=== PATIENT | female | born 1950 | race Caucasian/White ===

== ENCOUNTER 2016-07-16 04:01 | Inpatient (IN) ==
[2016-07-11 12:33] LABS: MANUAL DIFF NEEDED? NO; URINE MICRO REVIEW NEEDED? NO; URINE SOURCE VOIDED
[2016-07-11 12:43] LABS: BASO% 0.4 % (0.0-0.8); EOS# 0.33 X1000 (0.0-0.7); EOS% 2.9 % (0.0-10.0); HEMOGLOBIN 12.5 g/dL (12.0-16.0); LYMPH% 30.1 % (20.5-51.1); MCH 31.7 PG (27-31); MCHC 32.1 g/dL (33-37); MONO# 0.63 X1000 (0.11-0.59); MONO% 5.6 % (1.7-9.3); MPV 9.5 FL (7.4-10.4); PLT 314 X1000 (130-400); RBC 3.94 XMIL (4.2-5.4)
[2016-07-11 12:50] LABS: INR 0.97; PROTIME 10.2 Seconds (9.2-11.7); PTT 25.2 Seconds (22.0-36.0)
[2016-07-11 12:56] LABS: BILIRUBIN URINE NEGATIVE (NEGATIVE); BLOOD URINE NEGATIVE (NEGATIVE); COLOR STRAW; GLUCOSE URINE NEGATIVE (NEGATIVE); LEUKOCYTES URINE NEGATIVE (NEGATIVE); NITRITE URINE NEGATIVE (NEGATIVE); PROTEIN URINE NEGATIVE (NEGATIVE); SP GRAVITY URINE 1.003; TURBIDITY URINE CLEAR (CLEAR); UROBILINOGEN URINE NORMAL (NORMAL)
--- NOTE | 2016-07-11 12:56 | EKG Report ---
Test Performed on : 07/11/2016 12:11:08 PM Test Reason : PAT Blood Pressure : / mmHG Vent. Rate : 078 BPM Atrial Rate : 078 BPM P-R Int : 134 ms QRS Dur : 076 ms QT Int : 392 ms P-R-T Axes : 076 081 081 degrees QTc Int : 446 ms Sinus rhythm. with occasional premature ventricular complexes. Possible Left atrial enlargement Borderline ECG No previous ECGs available Confirmed by Dot ADAM, Darius Dominguez ([id number]) on 07/12/2016 6:25:40 PM
[2016-07-11 12:58] LABS: UR EPITHELIAL CELLS <10 /HPF (<10); URINE BACTERIA NEGATIVE /HPF; URINE RBC <10 /HPF (<10); URINE WBC <10 /HPF (<10)
[2016-07-11 14:18] LABS: AGAP 16; BUN 13 mg/dL (8-22); CALCIUM 9.4 mg/dL (8.8-10.2); CHLORIDE 97 mmol/L (98-107); COSMO 279; POTASSIUM 3.5 mmol/L (3.5-5.1); SODIUM 139 mmol/L (136-145); TCO2 26 mmol/L (25-35)
[2016-07-16] MEDS ORDERED: COLACE ONE (05:28)
[2016-07-16] MEDS ORDERED: REGLAN ONE (05:29)
[2016-07-16] MEDS ORDERED: PEPCID ONE (05:29)
[2016-07-16] MEDS ORDERED: LYRICA ONE (05:29)
[2016-07-16] MEDS ORDERED: LR 1,000 ML ONE (05:29)
[2016-07-16] MEDS ORDERED: KEFZOL 1 GM/D5W 1 GM/50 ML IVPB ONE (05:29)
[2016-07-16] MEDS ORDERED: CELEBREX ONE (05:29)
--- NOTE | 2016-07-16 06:58 | HISTORY AND PHYSICAL ---
CHIEF COMPLAINT: Left hip pain. HISTORY OF PRESENT ILLNESS: This is a 65-year-old, white female with a history of gradually increasing pain in her left hip. She knows of no specific injury to her hip. She has been treated conservatively without relief. She was evaluated in the office and found to need a left total hip arthroplasty. The surgical procedure, as well as risks and benefits were explained. The patient at this time is ready to proceed. SERIOUS ILLNESSES: Mitral valve prolapse, hypertension. PAST SURGERIES: Hysterectomy and eye surgery. REGULAR MEDICATIONS: BuSpar 15 twice a day, calcium 600 once a day, vitamin D 2000 per day, Cymbalta 60 one a day, hydrocodone p.r.n. pain, Prinivil 10 one at night, omeprazole 40 one a day, Zanaflex 4 one at night. REVIEW OF SYSTEMS: HEENT: No history of migraines, dizziness, loss of conscious, CVA. Respiratory: She smokes about a pack of cigarettes per day. No history of asthma, emphysema, or shortness of breath. Heart: No history heart abnormalities other than mitral valve prolapse which is asymptomatic. Abdomen: No history of ulcer or digestive disorders. No history of bowel or bladder problems. PHYSICAL EXAMINATION: GENERAL APPEARANCE: This is a 65-year-old female, alert and oriented. Her primary care physician is Dr. Lloyd. HEENT: Pupils equal, round, reactive. NECK: Good range of motion without adenopathy. RESPIRATORY: Respirations are equal, unlabored, clear bilaterally. HEART: Regular rate and rhythm. ABDOMEN: Soft, nontender. Bowel sounds present. EXTREMITIES: She complains of pain in her left hip area. Sometimes it radiates down her left leg. She states she has difficulty walking. She has good sensation and pulses distally. IMPRESSION: Degenerative disease of the left hip. PLAN: Admit at this time for a left total hip arthroplasty. Dictated by Marcell Dean RN for Dario Olivares MD This chart was documented by the indicated scribe, Marcell Dean RN and accurately reflects the services I performed and decisions made by me, Dario Olivares MD, as attested by the provider's signature. cc: Dario Olivares MD
[2016-07-16] MEDS ORDERED: MARCAINE 0.25% PF/EPI 1:200,000 ONE (07:17)
[2016-07-16] MEDS ORDERED: DURAMORPH ONE (07:17)
[2016-07-16] MEDS ORDERED: TORADOL ONE (07:17)
[2016-07-16] MEDS ORDERED: CYKLOKAPRON 1,000 MG/NS 1,000 MG/100 ML IVPB ONE (07:17)
[2016-07-16] MEDS ORDERED: SODIUM CHLORIDE 0.9% ONE (07:17)
[2016-07-16] MEDS ORDERED: NEOSPORIN G.U. IRRIGANT ONE (07:18)
[2016-07-16] MEDS ORDERED: EXPAREL 1.3% ONE (07:18)
[2016-07-16 08:38] LABS: URINE MICRO REVIEW NEEDED? NO; URINE SOURCE CATH
[2016-07-16 08:41] LABS: BILIRUBIN URINE NEGATIVE (NEGATIVE); BLOOD URINE NEGATIVE (NEGATIVE); COLOR YELLOW; GLUCOSE URINE NEGATIVE (NEGATIVE); LEUKOCYTES URINE NEGATIVE (NEGATIVE); NITRITE URINE NEGATIVE (NEGATIVE); PH URINE 5.5; PROTEIN URINE NEGATIVE (NEGATIVE); SP GRAVITY URINE 1.009; TURBIDITY URINE CLEAR (CLEAR); UR EPITHELIAL CELLS <10 /HPF (<10); URINE BACTERIA NEGATIVE /HPF; URINE RBC <10 /HPF (<10); URINE WBC <10 /HPF (<10); UROBILINOGEN URINE NORMAL (NORMAL)
[2016-07-16] MEDS ORDERED: NS 1,000 ML ONE (09:26)
[2016-07-16] MEDS ORDERED: VERSED ONE (09:36)
[2016-07-16] MEDS ORDERED: FENTANYL ONE (09:36)
[2016-07-16] MEDS ORDERED: DIPRIVAN 1% ONE (09:36)
[2016-07-16] MEDS ORDERED: ZOFRAN IV PRN (09:45)
[2016-07-16] MEDS ORDERED: MORPHINE IV PRN (09:45)
[2016-07-16] MEDS ORDERED: AMBIEN PO PRN (09:45)
[2016-07-16] MEDS ORDERED: MILK OF MAGNESIA PO PRN (09:45)
[2016-07-16] MEDS ORDERED: OFIRMEV 1000 MG/ISOTONIC SOLN 1,000 MG/100 ML BOTTLE ONE (09:57)
[2016-07-16] MEDS ORDERED: ZOFRAN ONE (09:57)
[2016-07-16] MEDS ORDERED: DECADRON ONE (09:57)
[2016-07-16] MEDS ORDERED: LR 2,000 ML ONE (09:57)
[2016-07-16] MEDS: NS 1,000 ML IV SCH ×2 (10:40→23:04)
--- NOTE | 2016-07-16 11:16 | OPERATIVE NOTE ---
PROCEDURE DATE: 07/16/2016 PREOPERATIVE DIAGNOSIS: Left hip degenerative joint disease. POSTOPERATIVE DIAGNOSIS: Left hip degenerative joint disease. PROCEDURE: Left total hip arthroplasty using a [facility] size 10 femoral stem high offset, with a +0, 32 mm head, and a 50 mm hemispherical shell with a 32 mm inside diameter polyethylene liner. ANESTHESIA: Spinal. SURGEON: Dario Olivares MD [employer] TESTING GROUP LEADER: 1. Vanessa Burns 2. SHAHEEN Lamar 3. Marcell Dean RN COMPLICATIONS: None. BLOOD LOSS: Minimal. DRAINS: Hemovac x1. DESCRIPTION OF PROCEDURE: The patient was brought to the operative suite and placed in supine position. After successful administration of general anesthesia well the patient was placed on the OSI table in the usual position for left hip. The left hip was then prepped and draped in usual sterile fashion. A longitudinal incision was made beginning 2 cm distal and 2 cm lateral to the anterior superior iliac spine, extending distally and slightly laterally 8 cm. The incision was then dissected sharply through the skin down to the tensor fascia. The tensor fascia was incised and dissected bluntly down to the deep tensor fascia. The deep tensor fascia was incised. The circumflex vessels were electrocauterized exposing the anterior capsule. A T-capsulotomy was performed, exposing the anterior femoral neck. A femoral neck cut was made with Not applicable. oscillating saw. Femoral head was removed with a power corkscrew. The labrum was resected. Acetabulum was serially reamed to a 50 to accept a 50 cup, the 50 cup was then driven into place in the proper amount inclination and anteversion. Once this was secure, the liner was locked onto the cup then attention was directed to the femur. The femur was externally rotated, extended, adducted, and elevated out of the wound with the hook on the OSI bed. The lateral neck was rongeured. The canal was serially broached to a size 10. A size 10 high offset, +0 neck length was trialed and found to be stable and good leg length. The trial was removed, definitive stem was seated on the femur, and then the ceramic head was locked onto the Marvin taper and the hip was copiously irrigated and dried and the hip was again reduced. It was again found to be in excellent position and found to be stable. The hip was copiously infiltrated with Exparel, including the posterior capsule, anterior capsule, anterior musculature, and subcutaneous tissue. The anterior capsule was repaired with #2 FiberWire. The drain was placed deep to the tensor fascia and buried around the stem of the prosthesis. The tensor fascia was closed with running 0 Vicryl suture. The skin edge approximated with 2-0 Vicryl interrupted. The skin was closed with a running Monocryl subcuticular and then Dermabond and a Silverlon dressing. The patient tolerated the procedure well without complication. At the end of the procedure, all counts correct. The patient was transferred to the recovery room in stable condition. cc: Dario Olivares MD
[2016-07-16] MEDS: NICODERM PATCH TD SCH (11:23)
[2016-07-16] MEDS ORDERED: CYKLOKAPRON 1,000 MG in NS 100 ML IV ONE (14:00)
[2016-07-16] MEDS: OXY IR PO PRN ×3 (14:05→18:48)
[2016-07-16] MEDS: KEFZOL 1 GM/D5W 1 GM/50 ML IVPB IV SCH ×2 (14:42→23:05)
[2016-07-16] MEDS: TYLENOL PO SCH ×2 (14:43→23:01)
[2016-07-16] MEDS: ULTRAM PO SCH ×2 (16:06→23:00)
[2016-07-16] MEDS ORDERED: PRINIVIL PO SCH (21:00)
[2016-07-16] MEDS: PERIDEX MT SCH (23:00)
[2016-07-16] MEDS: LYRICA PO SCH (23:00)
[2016-07-16] MEDS: BUSPAR PO SCH (23:00)
[2016-07-16] MEDS: ZANAFLEX PO SCH (23:00)
[2016-07-16] MEDS: COLACE PO SCH (23:00)
[2016-07-16] MEDS: CELEBREX PO SCH (23:00)
--- NOTE | 2016-07-17 04:56 | CONSULTATION ---
DATE OF CONSULTATION: 07/16/2016 REASON FOR CONSULTATION: Medical management. HISTORY OF PRESENT ILLNESS: Ms. Wallace, a 65-year-old white female patient, underwent a left total hip arthroplasty for severe degenerative disk disease. The patient tolerated the procedure well. I was consulted for medical management. The patient denied any chest pain. She does have occasional palpitations and skipped beats. No unusual cough, expectoration, or hemoptysis. Denied abdominal pain, nausea, vomiting. No diarrhea, blood, or mucus in the stool. The patient does have chronic low back pain. No heat or cold intolerance, unquantified weight loss. The patient does have a Perez catheter. Denied polyuria and polydipsia. No focal numbness, tingling, weakness. Patient denied being depressed. No further history available at this time. ALLERGIES: No known drug allergies. HOME MEDICATIONS: Includes BuSpar. The patient is on vitamin D, Colace, Cymbalta, Pepcid, Prinivil. The patient was on hydrocodone, Prilosec, and Zanaflex. PAST MEDICAL HISTORY: Significant for hypertension, osteoarthritis, situational depression, osteoporosis, gastritis, vitamin D deficiency, benign breast tumor, mitral valve prolapse, hysterectomy. REVIEW OF SYSTEMS: As per HPI. FAMILY HISTORY: Noncontributory. PHYSICAL EXAMINATION: General: Elderly white female patient in no acute distress. Vital Signs: Blood pressure 146/65, pulse 77, respirations 14, temperature 97.8 degrees. Skin: Normal turgor. No rash or petechiae. HEENT: Head atraumatic, normocephalic. Peever conjunctivae. Anicteric sclerae. Extraocular muscle movement normal. Fundus cannot be penetrated. Good oral hygiene. No tonsillopharyngeal congestion or exudate. Ears and nose benign. Neck: Supple. No JVD, thyromegaly, or lymphadenopathy. Chest: Bilateral good air entry present. No rales. Cardiovascular: S1 and S2 heard. A 2/6 systolic murmur at the apex. Abdomen: Soft, globular. Bowel sounds present. No organomegaly or mass. Extremities: No cyanosis, clubbing. No acute DVT. CHROME CLEANER: Alert, awake, able to move all 4 limbs. LABORATORY STUDIES: Preoperative blood work done on 07/11/2016. Hemoglobin was 12.5, hematocrit 39, platelet count 314,000. PT/INR 0.97, PTT was 25.2. Electrolytes were fairly benign. Urinalysis was negative. Her preoperative EKG revealed sinus rhythm, occasional PVC, left atrial enlargement, No acute ST-T wave changes. ASSESSMENT: Patient's medical problems include hypertension, history suggestive of chronic cough and Chronic obstructive pulmonary disease, palpitation, gastritis and reflux disease, osteoarthritis, vitamin D deficiency, situational depression. PLAN: Clinically, patient is doing better. We will check appropriate labs. Considering her history of palpitation, she will be benefited from telemetry monitoring. Will do CBC, check her magnesium. Fall precaution, close observation. Encourage incentive spirometry. Overall plan discussed at length with the patient. She is in agreement. cc: MD Dario Vo MD
[2016-07-17] MEDS: ULTRAM PO SCH ×3 (05:29→17:53)
[2016-07-17] MEDS: PRILOSEC PO SCH ×2 (05:29→07:44)
[2016-07-17] MEDS: XARELTO PO SCH (05:30)
[2016-07-17] MEDS: TYLENOL PO SCH ×3 (05:30→17:54)
[2016-07-17 06:10] LABS: MANUAL DIFF NEEDED? NO
[2016-07-17 06:34] LABS: AGAP 13; ALBUMIN 3.1 g/dL (3.5-5.0); ALKALINE PHOSPHATASE 59 U/L (32-104); BUN 13 mg/dL (8-22); CHLORIDE 98 mmol/L (98-107); COSMO 267; GOT 14 U/L (10-30); GPT 6 U/L (10-36); MAGNESIUM 1.7 mg/dL (1.5-2.7); POTASSIUM 4.5 mmol/L (3.5-5.1); SODIUM 133 mmol/L (136-145); TCO2 22 mmol/L (25-35); TOTAL BILIRUBIN 0.25 mg/dL (0.20-1.00); TOTAL PROTEIN 5.4 g/dL (6.3-8.3)
[2016-07-17 06:36] LABS: BASO% 0.1 % (0.0-0.8); HEMATOCRIT 26.1 % (37.0-47.0); HEMOGLOBIN 8.5 g/dL (12.0-16.0); LYMPH# 1.55 X1000 (1.2-3.4); LYMPH% 14.8 % (20.5-51.1); MCH 31.7 PG (27-31); MCHC 32.6 g/dL (33-37); MCV 97.4 FL (81-99); MONO# 0.63 X1000 (0.11-0.59); NEUT% 79.1 % (42.2-75.2); PLT 256 X1000 (130-400); RBC 2.68 XMIL (4.2-5.4)
--- NOTE | 2016-07-17 07:25 | PROGRESS NOTE ---
DATE: 07/17/2016 SUBJECTIVE: Ms. Cunningham is doing fair. She is complaining of pain in the left hip, more of a soreness. No chest pain. Mild cough. No expectoration. The patient does have chronic cough and is a heavy smoker. I am going to start her on Symbicort. OBJECTIVE: Her vital signs noted. Neck: Is supple. No JVD. Lungs: Bilateral good air entry present. Few basal crepitations. CVS: S1 and S2 heard. Abdomen: Soft. No distention. Bowel sounds present. AIRPLANE CLEANER: Alert, awake. Able to move all 4 limbs. CONSIDERATION: Labs- a.m. labs are pending. Electrolytes fairly benign. Sodium was 133, potassium 4.5. CBC results are pending. The patient does have hypertension, chronic cough, and osteoarthritis. I am going to start her on Symbicort. Continue rest of the treatment. I encouraged patient to go for inpatient rehab for better success of her surgery. The patient is going to discuss with her daughter and then make further final decision. Will follow CBC results. cc: MD Dario Vo MD
[2016-07-17] MEDS: SYMBICORT 160/4.5 MICROGM INHALER INH SCH ×2 (07:54→21:29)
--- NOTE | 2016-07-17 08:22 | PROGRESS NOTE ---
DATE: 07/17/2016 SUBJECTIVE: Ms. Wallace is a 65-year-old female who is postoperative day 1 from a left total hip arthroplasty. She has no new complaints. OBJECTIVE: Vital Signs: Stable. She is afebrile. General: She is well developed, well nourished female. She is alert, oriented and cooperative with the examination. Extremities: Her dressing is clean, dry, and intact without cyanosis. Neurologic: Her leg is neurovascularly intact. Her calf is soft. Intact sensation to light touch. LABORATORY: Her hematocrit is 26.1, hemoglobin is 8.5. She has had 60 mL of drainage from the Hemovac and she walked 200 feet with physical therapy yesterday. ASSESSMENT: Stable left total hip arthroplasty. PLAN: We plan to continue working with her physical therapy and we hope to discharge her home tomorrow. Dictated by HANK Chun for Dario Olivares MD cc: HANK Chun MD MTDD
[2016-07-17] MEDS ORDERED: DECADRON IV ONE (09:00)
[2016-07-17] MEDS: PERIDEX MT SCH ×2 (09:26→21:29)
[2016-07-17] MEDS: CELEBREX PO SCH ×2 (09:26→21:28)
[2016-07-17] MEDS: CALTRATE 600 PO SCH (09:26)
[2016-07-17] MEDS: VITAMIN D PO SCH (09:26)
[2016-07-17] MEDS: PRINIVIL PO SCH (09:26)
[2016-07-17] MEDS: NICODERM PATCH TD SCH (09:26)
[2016-07-17] MEDS: LYRICA PO SCH ×2 (09:27→21:28)
[2016-07-17] MEDS: CYMBALTA PO SCH (09:27)
[2016-07-17] MEDS: COLACE PO SCH ×2 (09:27→21:28)
[2016-07-17] MEDS: PEPCID PO SCH (09:27)
[2016-07-17] MEDS: BUSPAR PO SCH ×2 (09:27→21:28)
[2016-07-17] MEDS: OXY IR PO PRN ×2 (09:34→21:27)
[2016-07-17] MEDS: ZANAFLEX PO SCH (21:29)
[2016-07-18] MEDS: ULTRAM PO SCH ×3 (00:14→12:19)
[2016-07-18] MEDS: TYLENOL PO SCH ×3 (00:15→12:20)
[2016-07-18] MEDS: OXY IR PO PRN ×3 (03:51→13:29)
[2016-07-18 05:43] LABS: HEMATOCRIT 25.2 % (37.0-47.0); HEMOGLOBIN 8.1 g/dL (12.0-16.0)
[2016-07-18] MEDS: XARELTO PO SCH (06:30)
[2016-07-18] MEDS: PRILOSEC PO SCH (06:30)
--- NOTE | 2016-07-18 06:54 | PROGRESS NOTE ---
DATE: 07/18/2016 SUBJECTIVE: Ms. Wallace is doing better. She was able to ambulate in the hallway yesterday complaining of pain in the left hip area. No high-grade fever or chills. No chest pain or palpitations. No unusual shortness of breath. Her O2 saturation on room air is satisfactory. Oral intake was good. OBJECTIVE: Vital Signs: Her vital signs were noted. Neck: Supple. No JVD. Lungs: Bilateral good air entry present. Cardiovascular: S1 and S2 heard. Abdomen: Soft. No distention. Bowel sounds present. Central Nervous System: Alert, awake, able to move all 4 limbs. No acute DVT. LABORATORY DATA: The lab data done yesterday reviewed. Hemoglobin was 8.1, hematocrit 25.2. The patient does have blood-loss anemia, which the patient is tolerating it fairly well. CONSIDERATION: 1. Gastritis and reflux disease. 2. Osteoarthritis. 3. Hypertension. 4. Situational depression. PLAN: I am going to add Icar-C. We will let home health do blood work on Saturday. Continue the rest of the medications. Fall precautions. The overall plan was discussed with the patient, and she is in agreement. cc: MD Dario Vo MD
[2016-07-18] MEDS: SYMBICORT 160/4.5 MICROGM INHALER INH SCH (08:09)
[2016-07-18] MEDS ORDERED: ICAR-C PO SCH (09:00)
[2016-07-18] MEDS: PRINIVIL PO SCH (09:59)
[2016-07-18] MEDS: NICODERM PATCH TD SCH (09:59)
[2016-07-18] MEDS: LYRICA PO SCH (09:59)
[2016-07-18] MEDS: CALTRATE 600 PO SCH (10:00)
[2016-07-18] MEDS: COLACE PO SCH (10:00)
[2016-07-18] MEDS: BUSPAR PO SCH (10:00)
[2016-07-18] MEDS: PERIDEX MT SCH (10:00)
[2016-07-18] MEDS: CYMBALTA PO SCH (10:00)
[2016-07-18] MEDS: CELEBREX PO SCH (10:00)
[2016-07-18] MEDS: VITAMIN D PO SCH (10:00)
[2016-07-18] MEDS: PEPCID PO SCH (10:01)
[2016-07-18 11:23] VITALS: BP 155/59
--- NOTE | 2016-07-19 04:21 | DISCHARGE SUMMARY ---
ADMISSION DATE: 07/16/2016 DISCHARGE DATE: 07/18/2016 DISCHARGE DIAGNOSIS: Left hip degenerative joint disease, status post left total hip arthroplasty. DISCHARGE MEDICATIONS: See discharge medication list. DISPOSITION: Patient discharged home with outpatient physical therapy. Instructed to return for any signs or symptoms of infection or deep venous thrombosis. Instructed to return to see Dr. Olivares next . HOSPITAL COURSE: On the day of admission, the patient underwent a left anterior total hip arthroplasty. Postoperative course unremarkable. At discharge, she is afebrile, tolerating a regular diet, ambulating well with physical therapy. Her wound is clean, dry, intact, without sign of infection. She is discharged home in stable condition, with instructions to follow up as described above. cc: Dario Olivares MD
== END 2016-07-18 14:11 | disposition home or self-care (01) ==
LOC: SURHOLD 04:01 → 4N 08:23
PROVIDERS: ADMIT Orthopaedic Surgery; ATTEND Orthopaedic Surgery

== ENCOUNTER 2018-04-16 11:07 | Inpatient (IN) ==
[2018-04-16] MEDS ORDERED: ZOFRAN IV ONE (11:13)
[2018-04-16] MEDS ORDERED: DILAUDID IV ONE ×3 (11:13→15:22)
[2018-04-16] MEDS ORDERED: ZOFRAN ONE ×2 (11:15→18:20)
[2018-04-16] MEDS ORDERED: DILAUDID ONE (11:15)
[2018-04-16 12:08] LABS: URINE SOURCE CATH
[2018-04-16 12:15] LABS: BASO# 0.03 X1000 (0.0-0.2); BASO% 0.2 % (0.0-0.8); EOS# 0.21 X1000 (0.0-0.7); EOS% 1.6 % (0.0-10.0); HEMATOCRIT 31.5 % (37.0-47.0); HEMOGLOBIN 9.9 g/dL (12.0-16.0); IMM GRAN# 0.02 X1000 (0.0-0.04); IMM GRAN% 0.1 % (0.0-0.5); LYMPH% 15.7 % (20.5-51.1); MCH 30.1 PG (27-31); MCHC 31.4 g/dL (33-37); MCV 95.7 FL (81-99); MONO# 0.92 X1000 (0.11-0.59); MONO% 6.9 % (1.7-9.3); MPV 9.8 FL (7.4-10.4); NEUT# 10.08 X1000 (1.4-6.5); NEUT% 75.5 % (42.2-75.2); PLT 382 X1000 (130-400); RBC 3.29 XMIL (4.2-5.4); RDW 13.1 % (11.5-14.5); WBC 13.36 X1000 (4.8-10.8)
[2018-04-16 12:19] LABS: BILIRUBIN URINE NEGATIVE (NEGATIVE); BLOOD URINE NEGATIVE (NEGATIVE); COLOR YELLOW; GLUCOSE URINE NEGATIVE (NEGATIVE); KETONE URINE NEGATIVE (NEGATIVE); LEUKOCYTES URINE NEGATIVE (NEGATIVE); NITRITE URINE NEGATIVE (NEGATIVE); PROTEIN URINE NEGATIVE (NEGATIVE); SP GRAVITY URINE 1.003; TURBIDITY URINE CLEAR (CLEAR); UR EPITHELIAL CELLS <10 /HPF (<10); URINE BACTERIA NEGATIVE /HPF; URINE RBC <10 /HPF (<10); URINE WBC <10 /HPF (<10); UROBILINOGEN URINE NORMAL (NORMAL)
[2018-04-16 12:26] LABS: INR 0.89; PROTIME 12.7 Seconds (11.0-16.0)
[2018-04-16 12:27] LABS: PTT 24.6 Seconds (22.3-41.8)
[2018-04-16 12:29] LABS: ALB/GLOB RATIO 1.5; CALCIUM 8.6 mg/dL (8.8-10.2); POTASSIUM 3.5 mmol/L (3.5-5.1); TOTAL BILIRUBIN 0.15 mg/dL (0.20-1.00); TOTAL PROTEIN 6.6 g/dL (6.3-8.3)
--- NOTE | 2018-04-16 12:38 | Diag Imaging Result Doc PS360 ---
PELVIS - 04/16/2018 INDICATION: fall TECHNIQUE: COMPARISON: None FINDINGS: There is a left hip prosthesis in good position. There are stable old deformities of the pubic rami on the right. No visible acute fracture to the pelvis. Positioning is poor. IMPRESSION: No visible acute fracture. Electronically signed by Tej Sen 04/16/2018 12:35 PM
--- NOTE | 2018-04-16 12:38 | Diag Imaging Result Doc PS360 ---
FEMUR MIN 2 VIEWS RIGHT - 04/16/2018 INDICATION: DEFORMITY R FEMUR TECHNIQUE: COMPARISON: None FINDINGS: There is a badly displaced overlapping midshaft right femur fracture. This is angulated by about 30 degrees. IMPRESSION: Right femur fracture. Electronically signed by Tej Sen 04/16/2018 12:36 PM
--- NOTE | 2018-04-16 12:42 | Diag Imaging Result Doc PS360 ---
EXAM: CHEST-PORTABLE INDICATION: MVP,HEART MURMUR,PRE-OP TECHNIQUE: One view COMPARISON: 03/11/2018 FINDINGS: There is evidence of prior granulomatous disease, stable. The lungs are grossly clear. There is no discrete pleural fluid collection or pneumothorax. The cardiomediastinal silhouette and central vasculature are grossly unremarkable. IMPRESSION: No evidence of acute pathology by plain radiograph. Electronically signed by Agus Stahl 04/16/2018 12:39 PM
[2018-04-16] MEDS ORDERED: NS 1,000 ML IV ONE ×2 (12:46→14:56)
--- NOTE | 2018-04-16 14:33 | PROVIDER DOCUMENTATION ---
This chart was entered by Lovely Ruiz Scribe, acting as scribe for Tony Branch MD. HPI-Musculoskeletal Pain/Inj - GENERAL Stated Complaint: fall Time Seen by Provider: 04/16/18 11:12 Source: EMS - HX OF PRESENT ILLNESS-MUSKULOSKELTAL Nature of Presenting Problem: Patient is a 67 year old female who presents to the ED via EMS with right upper leg pain. EMS states patient fell prior to arrival. EMS states patient broke her left femur last years around [place] time. Patient does not report head injury. Patient denies taking blood thinners. Quality of Pain: reports: aching Severity in ED: moderate Onset/Duration: just prior to arrival Timing: still present Modifying Factors: improves with: nothing Any recent injury?: Yes (fall) Locality of Occurance: Home Similar Symptoms Previously?: No Recently seen or treated by another doctor?: No - FALL INJURY Location of Pain/Injury: reports: lower extremity (right upper leg) Pain Radiation: reports: no radiation Reason for Fall: reports: unknown Symptoms prior to fall:: reports: none Loss of Consciousness: no loss of consciousness Injury Associated Symptoms: reports: unable to bear weight, trouble walking - LOWER EXTREMITY PAIN/INJURY Lower Extremities Pain: leg: right (upper) Context / Method of Injury: reports: fell Associated Symptoms: reports: weakness in legs/feet (right) Review of Systems - Adult - REVIEW OF SYSTEMS - ADULT Constitutional: reports: no symptoms reported Eyes: reports: no symptoms reported Ears, Nose, Mouth & Throat: reports: no symptoms reported Cardiovascular: reports: no symptoms reported Respiratory: reports: no symptoms reported Gastrointestinal: reports: no symptoms reported Genitourinary: reports: no symptoms reported Musculoskeletal: reports: other (right upper leg pain). denies: back pain, neck pain Integumentary: reports: no symptoms reported Neurological: reports: no symptoms reported Psychiatric: reports: no symptoms reported Endocrine: reports: no symptoms reported Hematologic/Lymphatic: reports: no symptoms reported Allergic/Immunologic: reports: no symptoms reported All Other Systems: Reviewed and Negative Past History - Adult - PAST MEDICAL HISTORY-ADULT Review of Records: reports: Nursing Assessment Review, Medications Reviewed, Social history reviewed & non-contributory. Major Childhood Illnesses: reports: denies history Cardiovascular: reports: hyperlipidemia Respiratory: reports: COPD Gastrointestinal: reports: GERD Obstetrical/Gynecological: reports: denies history Genitourinary: reports: denies history Musculoskeletal: reports: intervertebral disc disease, osteoporosis Neurological: reports: denies history Psychiatric: reports: denies history Endocrine/Immune: reports: denies history Other Conditions: reports: denies history - PRIOR SURGERIES/PROCEDURES Surgical/Procedure History: reports: reviewed, not pertinent, appendectomy, hysterectomy, tonsillectomy, joint replacement - IMMUNIZATION STATUS Childhood Immunizations: See Nurse Assessment Flu Vaccine: See Nurse Assessment - FAMILY HISTORY Family History: reviewed, not pertinent - SOCIAL HISTORY Smoking: cigarettes, less than 1 pack/day Provider spent 3-5 mins advising pt. on dangers of tobacco.: Discussed manners to quit use, and f/u contacts for add'l counseling. Substance Use: denies Physical Exam-Injury Related - Physical Exam-Injury Related Initial Vital Signs Reviewed: Yes General Appearance: alert, moderate distress Neck: non-tender, normal inspection Respiratory: chest non-tender, lungs clear, normal breath sounds Cardiovascular: normal peripheral pulses, regular rate, rhythm, systolic murmur (3/6 at PMI) Abdominal Exam: normal bowel sounds, non tender, soft Extremity: deformity (right thigh), tenderness (right thigh) Integumentary: normal color, warm/dry Neurologic: grossly normal Psych/Mental Status: normal mood/affect, oriented x 3 Progress - PLAN OF CARE/RESULTS Progress/Plan/Lab Results: Vital Signs - 8 hr 04/16/18 11:36 04/16/18 11:40 04/16/18 11:50 Pulse Rate 105 H 101 H 105 H Respiratory Rate 16 16 17 Blood Pressure 164/75 O2 Sat by Pulse Oximetry 98 99 93 L 04/16/18 12:06 04/16/18 12:29 04/16/18 12:30 Pulse Rate 106 H 104 H Respiratory Rate 17 19 Blood Pressure 164/75 O2 Sat by Pulse Oximetry 100 98 97 04/16/18 12:40 04/16/18 12:43 04/16/18 12:45 Pulse Rate 104 H 99 H 102 H Respiratory Rate 12 17 12 Blood Pressure 136/68 136/68 O2 Sat by Pulse Oximetry 99 97 97 04/16/18 12:50 04/16/18 13:00 04/16/18 13:01 Pulse Rate 103 H 108 H 110 H Respiratory Rate 19 15 25 H Blood Pressure 134/70 O2 Sat by Pulse Oximetry 100 98 96 04/16/18 13:10 04/16/18 13:17 04/16/18 13:20 Pulse Rate 108 H 107 H 110 H Respiratory Rate 17 20 19 Blood Pressure 174/85 O2 Sat by Pulse Oximetry 96 94 L 94 L 04/16/18 13:30 04/16/18 13:31 04/16/18 13:34 Pulse Rate 109 H 110 H 107 H Respiratory Rate 21 24 19 Blood Pressure 172/81 162/84 O2 Sat by Pulse Oximetry 98 99 97 04/16/18 13:40 04/16/18 13:46 04/16/18 13:50 Pulse Rate 115 H 116 H 108 H Respiratory Rate 15 22 22 Blood Pressure 176/87 O2 Sat by Pulse Oximetry 97 94 L 93 L 04/16/18 14:00 04/16/18 14:01 Pulse Rate 110 H 109 H Respiratory Rate 21 17 Blood Pressure 162/80 O2 Sat by Pulse Oximetry 94 L 95 Laboratory Results - last 24 hr 04/16/18 04/16/18 04/16/18 11:46 11:46 11:46 WBC RBC Hgb Hct MCV MCH MCHC RDW Std Deviation Plt Count MPV Immature Gran % (Auto) Neut % (Auto) Lymph % (Auto) [place] % (Auto) Eos % (Auto) Baso % (Auto) Immature Gran # (Auto) Neut # (Auto) Lymph # (Auto) [place] # (Auto) Eos # (Auto) Baso # (Auto) PT INR PTT (Actin FS) Sodium 137 Potassium 3.5 Chloride 100 Carbon Dioxide 22 L Anion Gap 15 BUN 25 H Creatinine 1.0 H Estimated GFR/1.73 m2 55 BUN/Creatinine Ratio 25 Glucose 111 H Calculated Osmolality 279 Calcium 8.6 L Magnesium 1.7 Total Bilirubin 0.15 L AST 11 ALT 5 L Alkaline Phosphatase 100 Troponin T < 0.010 Total Protein 6.6 Albumin 4.0 Globulin 2.6 Albumin/Globulin Ratio 1.5 Urine Source Urine Color Urine Turbidity Urine pH Ur Specific [place] Urine Protein Ur Glucose (Stick) Ur Ketones (Stick) Urine Blood Urine Nitrite Urine Bilirubin Urobilinogen Dipstick Urine Leukocytes Urine WBC (Auto) Urine RBC (Auto) U Epithel Cells (Auto) Urine Bacteria (Auto) 04/16/18 04/16/18 04/16/18 11:46 12:02 12:02 WBC 13.36 H RBC 3.29 L Hgb 9.9 L Hct 31.5 L MCV 95.7 MCH 30.1 MCHC 31.4 L RDW Std Deviation 13.1 Plt Count 382 MPV 9.8 Immature Gran % (Auto) 0.1 Neut % (Auto) 75.5 H Lymph % (Auto) 15.7 L [place] % (Auto) 6.9 Eos % (Auto) 1.6 Baso % (Auto) 0.2 Immature Gran # (Auto) 0.02 Neut # (Auto) 10.08 H Lymph # (Auto) 2.10 [place] # (Auto) 0.92 H Eos # (Auto) 0.21 Baso # (Auto) 0.03 PT 12.7 INR 0.89 PTT (Actin FS) 24.6 Sodium Potassium Chloride Carbon Dioxide Anion Gap BUN Creatinine Estimated GFR/1.73 m2 BUN/Creatinine Ratio Glucose Calculated Osmolality Calcium Magnesium Total Bilirubin AST ALT Alkaline Phosphatase Troponin T Total Protein Albumin Globulin Albumin/Globulin Ratio Urine Source CATH Urine Color YELLOW Urine Turbidity CLEAR Urine pH 5.0 Ur Specific [place] 1.003 Urine Protein NEGATIVE Ur Glucose (Stick) NEGATIVE Ur Ketones (Stick) NEGATIVE Urine Blood NEGATIVE Urine Nitrite NEGATIVE Urine Bilirubin NEGATIVE Urobilinogen Dipstick NORMAL Urine Leukocytes NEGATIVE Urine WBC (Auto) <10 Urine RBC (Auto) <10 U Epithel Cells (Auto) <10 Urine Bacteria (Auto) NEGATIVE Orders Category Date Time Status Perez Cath Insertion ORDERED Care 04/16/18 11:43 Active Saline Loc NOW Care 04/16/18 11:41 Active CHEST-PORTABLE [RAD] Stat Exams 04/16/18 11:40 Completed FEMUR MIN 2 VIEWS RIGHT [RAD] Stat Exams 04/16/18 11:37 Completed PELVIS [RAD] Stat Exams 04/16/18 11:42 Completed CBC WITH ELECTRONIC DIFF [HEME] Stat Lab 04/16/18 12:02 Completed COMPREHENSIVE METABOLIC PANEL [CHEM] Stat Lab 04/16/18 11:46 Completed MAGNESIUM [CHEM] Stat Lab 04/16/18 11:46 Completed PROTIME WITH INR [COAG] Stat Lab 04/16/18 12:02 Completed PTT [COAG] Stat Lab 04/16/18 12:02 Completed TROPONIN T Stat Lab 04/16/18 11:46 Completed URINALYSIS W/POSS RFLX CULT [URINALYSIS] Stat Lab 04/16/18 11:46 Completed 0.9% Sodium Chloride Inj [Ns] 1,000 ml Med 04/16/18 12:46 Discontinued IV 999 mls/hr Hydromorphone [Dilaudid] Med 04/16/18 11:15 Discontinued 1 mg .ROUTE .STK-MED ONE Hydromorphone [Dilaudid] Med 04/16/18 11:13 Discontinued 1 mg IV NOW ONE Hydromorphone [Dilaudid] Med 04/16/18 12:44 Discontinued 1 mg IV NOW ONE Ondansetron [Zofran] Med 04/16/18 11:15 Discontinued 4 mg .ROUTE .STK-MED ONE Ondansetron [Zofran] Med 04/16/18 11:13 Discontinued 4 mg IV NOW ONE EKG [EKG] Stat Ther 04/16/18 11:41 Ordered Result Diagrams: 04/16/18 12:02 04/16/18 11:46 - XRAY 1 XRAY: Right XRAY Study: Femur Impression: See EMR Report ( FEMUR MIN 2 VIEWS RIGHT - 04/16/2018 INDICATION: DEFORMITY R FEMUR TECHNIQUE: COMPARISON: None FINDINGS: There is a badly displaced overlapping midshaft right femur fracture. This is angulated by about 30 degrees. IMPRESSION: Right femur fracture. Electronically signed by Tej Sen 04/16/2018 12:36 PM 04/16/18 1236 Interpreting Physician: Tej Sen MD Dictated Date/Time: 04/16/18 1235 cc: Tony Branch MD; Brad Lloyd MD) 2 XRAY Study: Pelvis Impression: See EMR Report (PELVIS - 04/16/2018 INDICATION: fall TECHNIQUE: COMPARISON: None FINDINGS: There is a left hip prosthesis in good position. There are stable old deformities of the pubic rami on the right. No visible acute fracture to the pelvis. Positioning is poor. IMPRESSION: No visible acute fracture. Electronically signed by Tej Sen 04/16/2018 12:35 PM 04/16/18 1235 Interpreting Physician: Tej Sen MD Dictated Date/Time : 04/16/18 1232 cc: Tony Branch MD; Brad Lloyd MD) 3 XRAY Study: Chest Impression: See EMR Report (EXAM: CHEST-PORTABLE INDICATION: MVP,HEART MURMUR, PRE-OP TECHNIQUE: One view COMPARISON: 03/11/2018 FINDINGS: There is evidence of prior granulomatous disease, stable. The lungs are grossly clear. There is no discrete pleural fluid collection or pneumothorax. The cardiomediastinal silhouette and central vasculature are grossly unremarkable. IMPRESSION: No evidence of acute pathology by plain radiograph. Electronically signed by Agus Stahl 04/16/2018 12:39 PM 04/16/18 1239 Interpreting Physician: Agus Stahl MD Dictated Date/Time: 04/16/18 1239 cc: Tony Branch MD; Brad Lloyd MD) - CONSULTS/PCP/HOSPITALIST Notification #1 *Consult/PCP/Hospitalist*: Dr. Ray Time Discussed: 14:08 Reason/Comments: Dr. Branch consulted with Dr. Ray about patient. #2 Consult: SHAHEEN Bradford for Hospitalist Time Discussed: 14:13 Reason/Comments: Dr. Branch consulted with Sanchez about patient. Consult Disposition: other (Patient is a Dr. Lloyd patient.) #3 Consult: Dr. Lloyd Time Discussed: 14:19 Reason/Comments: Dr. Branch consulted with Dr. Lloyd about patient. Consult Disposition: Admit Departure - Departure Date of Disposition Decision: 04/16/18 Time of Disposition Decision: 14:19 DIAGNOSIS: Femur fracture, right Disposition: ADMITTED INPATIENT 09 Certified Medical Emergency: Emergent Condition: Stable Referrals and Follow-Ups: Brad Lloyd MD [Primary Care Provider] - - Critical Care Note This patient required my direct & personal management of CC.: No Attestation - Physician/ MARY Attestation The physician spent face to face time with patient:: Yes Advanced Practice Provider documentation review:: Supervising physician onsite and consulted in the evaluation and care of this patient. The physician did have a face to face encounter with the patient. This chart was documented by the indicated scribe, (Lovely Ruiz Scribe) and accurately reflects the services I performed and decisions made by me, Tony Branch MD, as attested by the provider's signature.
[2018-04-16] MEDS ORDERED: NICODERM PATCH TD ONE (15:04)
[2018-04-16] MEDS ORDERED: SODIUM CHLORIDE 0.9% INJ SCH (17:15)
[2018-04-16] MEDS ORDERED: DIPRIVAN 1% ONE (17:46)
[2018-04-16] MEDS ORDERED: XYLOCAINE-MPF 2% ONE (17:47)
[2018-04-16] MEDS ORDERED: KEFZOL 1 GM/D5W 1 GM/50 ML IVPB ONE (17:50)
[2018-04-16] MEDS ORDERED: EPHEDRINE ONE (18:20)
[2018-04-16] MEDS ORDERED: OFIRMEV 1000 MG/ISOTONIC SOLN 0 MG/0 ML BOTTLE ONE (18:21)
[2018-04-16] MEDS ORDERED: ZEMURON ONE (18:36)
[2018-04-16] MEDS ORDERED: FENTANYL ONE (19:11)
[2018-04-16] MEDS ORDERED: SALINE LOCK IV FLUID XX ONE (19:27)
[2018-04-16] MEDS ORDERED: MORPHINE IV PRN (19:27)
[2018-04-16] MEDS ORDERED: OXY IR ONE (21:35)
[2018-04-16] MEDS ORDERED: MILK OF MAGNESIA PO PRN (22:12)
[2018-04-16] MEDS ORDERED: NICODERM PATCH TD PRN (22:12)
[2018-04-16] MEDS: SYMBICORT 160/4.5 MICROGM INHALER INH SCH (22:40)
[2018-04-16] MEDS: COLACE PO SCH (23:24)
[2018-04-16] MEDS: PROTONIX IV SCH (23:24)
[2018-04-17] MEDS: PRINIVIL PO SCH ×3 (01:43→20:21)
[2018-04-17] MEDS: BUSPAR PO SCH ×3 (01:43→20:20)
[2018-04-17] MEDS: KEFZOL 1 GM/D5W 1 GM/50 ML IVPB IV SCH ×3 (01:46→17:44)
[2018-04-17] MEDS: OXY IR PO PRN ×4 (01:46→16:44)
--- NOTE | 2018-04-17 03:14 | HISTORY AND PHYSICAL ---
CHIEF COMPLAINT: Right thigh pain. HISTORY OF PRESENT ILLNESS: Ms. Wallace, a 67-year-old female patient, presented with a history of fall. According to the ER records, the patient claims her legs fell in the hole. She fell, broke her right femur. Complaining of significant pain. The patient also has some swelling. EMS was called, and the patient was brought to the emergency room. When I evaluated the patient, the patient told me a different version, which was she heard a pop first, and then she fell, meaning that the patient claims her bone fractured first, and then she fell. The patient does have significant osteoporosis, radial bone. The patient is noncompliant to treatment and followup. The patient recently had a fall, and she fractured her left femur. The patient did have surgery. She did fairly well, but again, the patient was noncompliant to treatment regimen. She was still smoking, not taking her vitamin D and calcium supplement properly. The patient denied any head injury today. No history of loss of consciousness. No chest pain or palpitation prior to fall. No fever or chills. No dysuria or hematuria. The patient evaluated in the ER by orthopedic surgeon, who recommended Song's traction, pain management, and surgeon was going to take her for surgery. The patient denied any abdominal pain, nausea, vomiting. No diarrhea, blood, or mucus in the stool. When I evaluated the patient, she did have a Perez catheter in place. No dysphagia or odynophagia. The patient is a chronic heavy smoker. The patient does have chronic cough, with scanty sputum production. She denied any hemoptysis. The patient does have epigastric discomfort, and at times heartburn. Unquantified weight loss. No heat or cold intolerance. ALLERGIES: No known drug allergy. MEDICATIONS: Prilosec, lisinopril, BuSpar,Cymbalta, calcium with vitamin D, Norvasc, [place], bronchodilator treatment. PAST MEDICAL HISTORY: Hypertension, vitamin D deficiency, osteoporosis, gastritis and reflux disease, anxiety and depression, history of left hip fracture and surgery, history of recent left femur fracture and surgery, breast lump, turned out to be benign, mitral valve prolapse, and hysterectomy. PERSONAL HISTORY: Single. The patient is a smoker. Denied alcohol or substance abuse. FAMILY HISTORY: Noncontributory. REVIEW OF SYSTEMS: As per HPI. PHYSICAL EXAMINATION: GENERAL: Elderly white female patient, in mild distress. VITAL SIGNS: Blood pressure on admission 164/75, pulse 105, respirations 16, temperature was normal. SKIN: Senile turgor. HEENT: Head atraumatic, normocephalic. [place] conjunctivae. Anicteric sclerae. Extraocular muscle movement normal. Fundus cannot be penetrated. Good oral hygiene. No tonsillopharyngeal congestion or exudate. Ears and nose benign. NECK: Supple. No JVD, thyromegaly, or lymphadenopathy. CHEST: Bilateral good air entry present. No rales. CARDIOVASCULAR: S1 and S2 heard. No gallop or thrill. A 2/6 systolic murmur at the apex. ABDOMEN: Soft, nontender. Bowel sounds present. EXTREMITIES: No cyanosis, clubbing. No acute DVT. Peripheral pulsation intact. MUSCULOSKELETAL: The patient does have deformity of the right femur, with apparent evidence of fracture clinically of the right femur shaft, and tenderness of the right femur at the mid thigh. Minimal swelling. Peripheral pulsation intact. EXECUTIVE SECRETARY SOCIAL WELFARE: Alert, awake, answering questions fairly well. LABORATORY DATA: Hemoglobin 9.9, hematocrit 31.5. WBC count 13.36, platelet count 382,000. The patient does have some left shift. Electrolytes: PT/INR 0.89, PTT was 24.6. Potassium 3.5, chloride 100, BUN 25, creatinine was 1. Urinalysis was benign. MEDICAL PROBLEMS: 1. The right femur fracture, status post fall. I doubt a pathologic fracture, but cannot be ruled out. 2. Osteoporosis. 3. Hypertension. 4. Gastritis and reflux disease. 5. History of benign tumor of the breast. 6. Vitamin D deficiency. 7. Anxiety and depression. PLAN: 1. Admit the patient. 2. Pain management. 3. Symptomatic treatment. 4. Orthopedic consult. 5. Close observation. Overall plan discussed at length with the patient. Encouraged smoking cessation. The patient understood and agreed. Considering her epigastric discomfort, reflux, she is not a candidate for bisphosphonate. The patient is kind of reluctant to go to any other staffing consultant. For treatment of osteoporosis, like Reclast, she is refusing all preventive workup, like upper or lower GI endoscope. Overall prognosis [id number]. The patient is aware of prognosis. cc: Brad Lloyd MD
--- NOTE | 2018-04-17 05:01 | CONSULTATION ---
DATE OF CONSULTATION: 04/16/2018 REASON FOR CONSULTATION: Right leg pain with fall. HISTORY OF PRESENT ILLNESS: Ms. Wallace is a 67-year-old female with a past medical history of hypertension, vitamin D deficiency, osteoporosis, and recent left hip fracture. The patient states that she was recently discharged from home health after a left midshaft femur fracture. Dr. Huang performed open reduction, internal fixation of the left femur on 03/11. Ms. Vargas states she was at home when she went to walk and heard a loud pop and had pain in the leg. She states she fell after she noted the loud pop in the leg. She presented to the [facility]. X -rays were taken on arrival that showed a right femur fracture. Orthopedics was consulted for management of the fracture. PAST MEDICAL HISTORY: 1. Osteoporosis. 2. Vitamin D deficiency. 3. Primary essential hypertension. 4. Anxiety. 5. Depression. 6. Gastritis. 7. Gastroesophageal reflux disease. PAST SURGICAL HISTORY: Recent left ORIF hip in February of 2018. FAMILY HISTORY: Noncontributory. SOCIAL HISTORY: The patient was recently discharged from rehab. She does admit to daily smoking. She denies alcohol or substance abuse. REVIEW OF SYSTEMS: A 10 point review of system was completed, and negative except as mentioned above in HPI. PHYSICAL EXAMINATION: Vital Signs: Current vital signs show no reported temperature, pulse 107, blood pressure 162/80 and 95% on room air. General: This is an elderly appearing 67-year-old female in no acute distress. She does complain of right leg pain. Neurological : She is alert and oriented x3 with no focal deficits. HEENT: Head is atraumatic, normocephalic. Pupils are equal, round, and reactive to light. Cardiovascular: Regular rate and rhythm. She is tachycardic. Pulmonary: Breathing is even and unlabored. Abdomen: Appears nondistended. Extremities: The right lower extremity is currently in traction. She does have good sensation to the lower extremity. She has a 2+ pedal pulse. There are no skin ulcerations or abrasions. She does have obvious deformity at the mid thigh. IMAGING: A right femur x-ray does show a displaced right femur fracture. CURRENT LABORATORY DATA: White count 13.36, hemoglobin and hematocrit 9.9, 31.5 , and platelets are 382,000. Her INR is 0.89. Her BUN and creatinine is 25 and 1.0. ASSESSMENT: Displaced right femur fracture. PLAN: We will plan to do a right femur intramedullary nailing today. She has had nothing to eat since 8:00 this morning. She is not on any blood thinners. There is nothing medically to delay the surgery. Dr. Ray discussed risks and benefits of the procedure. Risks include, but are not limited to, damage to nerves, arteries, and veins, malunion, heart, nonunion , hardware related issues, damage to nerves, risk of infection, poor wound healing, DVT and risk of general anesthesia as well as continued pain. The patient understands and wished to proceed. We will plan on doing this as soon as possible. Dictated by SHAHEEN Remy for Bernardo Ray MD cc: SHAHEEN Remy MD Bharat K. Vakharia, MD [facility]
--- NOTE | 2018-04-17 05:30 | OPERATIVE NOTE ---
PROCEDURE DATE: 04/16/2018 PREOPERATIVE DIAGNOSIS: Right midshaft femur fracture, displaced. POSTOPERATIVE DIAGNOSIS: Right midshaft femur fracture, displaced. PROCEDURE PERFORMED: Right intramedullary nailing of femur. SURGEON: Dr. Bernardo Ray. REPEATER CHIEF: SHAHEEN Remy, who was an integral part of the case, helping with all aspects of the case, helping with reduction and instrumentation, and closing. Her help decreased our OR time greatly. ANESTHESIA: General with LMA. BLOOD LOSS: 150 mL. IMPLANTS: Trochanteric femoral nail by [employer], 11 x 360, with a helical blade and 2 distal interlocking screws. DISPOSITION: To PACU, hemodynamically stable. INDICATION FOR PROCEDURE: Ms. Wallace is a 67-year-old female who presented to the emergency department today with pain after a fall, in her right thigh. She was diagnosed with a right femur fracture. I discussed with her about surgical intervention. She expressed understanding and wished to proceed. DESCRIPTION OF PROCEDURE: Ms. Wallace was identified in the preoperative holding area. The right thigh was marked as the correct surgical site. She was then wheeled to the operating room, kept supine on her own bed. She was induced under general anesthesia. LMA was placed. She was then moved to the traction bed. Traction boots were placed. Right lower extremity then prepped with chlorhexidine, gluconate scrub, and then ChloraPrepped and draped in a normal sterile fashion. Surgical pause was performed. We identified the correct patient, correct side, and the correct procedure. Preop antibiotics were given. We pulled some traction on the right lower extremity. I was able to get a pretty decent reduction just by traction. I made an incision proximal to the greater trochanter. Dissection was carried down. I got my guidewire in position on the greater trochanter. I advanced that and then drilled over that with my opening reamer. I then was able to get a ball-tip guidewire down to the fracture site. It was a little bit difficult to get the fracture 100% reduced. The fracture was pretty difficult to get reduced. We did struggle with that a little bit but I was able to finally get a really good reduction. I was able to pass the guidewire down center-center at the knee. I then sequentially reamed, starting with an 8.5 opening reamer to a size 12 reamer. Then we passed our trochanteric femoral nail down and that lined up our fracture extremely well. I was very happy with our reduction. We then placed our helical blade. I made an incision on the thigh and got my guidewire up center-center in the head. Then I was able to put the blade up after that. I came down distal and was able to get two interlocking screws distally, one in the dynamic hole and one in the static. After this, the entire guide was taken off. Final images were taken which showed we had a really good reduction of our fracture and good position of all instrumentation. We then closed everything with 0 Vicryl for the deep layer, 2-0 Vicryl for the subcutaneous, and sahara on the skin. Adaptic, 4x4s, and [place] dressings were applied. She was then awoken from general anesthesia, moved to her own bed, and taken to the PACU in stable condition. Postoperatively, she will be weightbearing as tolerated to the right lower extremity. We will see her in the morning. cc: MD Brad Rudd MD
[2018-04-17 06:40] LABS: BASO# 0.02 X1000 (0.0-0.2); BASO% 0.3 % (0.0-0.8); EOS% 1.3 % (0.0-10.0); HEMATOCRIT 23.3 % (37.0-47.0); HEMOGLOBIN 7.1 g/dL (12.0-16.0); MCHC 30.5 g/dL (33-37); MCV 98.3 FL (81-99); MONO# 0.68 X1000 (0.11-0.59); MONO% 8.9 % (1.7-9.3); MPV 9.3 FL (7.4-10.4); NEUT# 4.24 X1000 (1.4-6.5); NEUT% 55.5 % (42.2-75.2); PLT 297 X1000 (130-400); RBC 2.37 XMIL (4.2-5.4); RDW 13.3 % (11.5-14.5); WBC 7.64 X1000 (4.8-10.8)
[2018-04-17 06:56] LABS: AGAP 12; ALB/GLOB RATIO 1.5; ALKALINE PHOSPHATASE 78 U/L (32-104); BUN 13 mg/dL (8-22); CALCIUM 7.8 mg/dL (8.8-10.2); CHLORIDE 104 mmol/L (98-107); COSMO 276; CREATININE 0.8 mg/dL (0.5-0.9); ESTIMATED GFR > 60; GLUCOSE 95 mg/dL (70-104); GOT 21 U/L (10-30); GPT 7 U/L (10-36); MAGNESIUM 1.4 mg/dL (1.5-2.7); POTASSIUM 3.5 mmol/L (3.5-5.1); SODIUM 138 mmol/L (136-145); TCO2 22 mmol/L (25-35); TOTAL BILIRUBIN 0.16 mg/dL (0.20-1.00)
--- NOTE | 2018-04-17 07:04 | PROGRESS NOTE ---
DATE: 04/17/2018 SUBJECTIVELY: Ms. Wallace is doing better. The patient underwent surgery yesterday, tolerated procedure well. The patient had fracture of the right femur. Patient had right intramedullary nailing of the femur done by Dr. Hernandez. She denied any chest pain or palpitations. No nausea or vomiting. No unusual cough or expectoration. OBJECTIVE: Vital signs: Noted. Neck: Supple. No JVD. Lungs: Bilateral good air entry present. CVS: S1 and S2 heard. Abdomen: Soft, nontender. Bowel sounds present. MOBILE BATTERY TECHNICIAN: Alert, awake, answering questions fairly well. AM LAB DATA: Pending. PROBLEMS: 1. Status post fall and right femur fracture. 2. Status post surgery. 3. Hypertension. 4. Osteoporosis. 5. Hyperlipidemia. 6. Gastritis. 7. Reflux disease. PLAN: I am going to advance her diet. AM labs are pending. Continue current treatment. Close observation. Again, offered her short-term rehab. The patient declined. We will plan discharging patient home whenever okay with surgeon. cc: Brad Lloyd MD
[2018-04-17] MEDS: SYMBICORT 160/4.5 MICROGM INHALER INH SCH ×2 (08:21→21:14)
[2018-04-17] MEDS: FERROUS SULFATE PO SCH (09:45)
[2018-04-17] MEDS: PERIDEX MT SCH ×2 (09:45→20:20)
[2018-04-17] MEDS: NORVASC PO SCH (09:46)
[2018-04-17] MEDS: SINGULAIR PO SCH (09:46)
[2018-04-17] MEDS: CYMBALTA PO SCH (09:49)
[2018-04-17] MEDS: TOPROL XL PO SCH ×2 (09:50→10:08)
--- NOTE | 2018-04-17 15:51 | PROGRESS NOTE ---
DATE: 04/17/2018 SUBJECTIVE: Ms. Wallace is lying in bed this morning. She is complaining of some pain on that right leg. She did get up today but did not really bear a lot of weight. OBJECTIVE: On right lower extremity exam, her dressing is clean, dry, and intact. She is able to dorsiflex and plantar flex the foot and ankle very well. Good sensation to light touch to all the toes. ASSESSMENT: Status post right intramedullary nailing femur fracture. PLAN: Ms. Wallace is weight bear as tolerated, bilateral lower extremities. Physical Therapy will continue to work with her. From an orthopedic standpoint, I would be okay with her going tomorrow on 04/18/2018 if she feels comfortable being at home. Home health therapy will need to be set up to come out pretty frequently. cc: MD Brad Rudd MD
[2018-04-17] MEDS: PROTONIX IV SCH (16:44)
[2018-04-17] MEDS ORDERED: TYLENOL PO PRN (17:13)
[2018-04-17] MEDS: COLACE PO SCH (20:20)
[2018-04-17] MEDS: DILAUDID IM PRN (20:20)
[2018-04-18] MEDS: DILAUDID IM PRN (04:11)
[2018-04-18] MEDS ORDERED: MAGNESIUM SULFATE 2 GM/S.W.I. 2 GM/50 ML IVPB IV ONE (06:35)
[2018-04-18 06:55] LABS: BASO# 0.05 X1000 (0.0-0.2); BASO% 0.5 % (0.0-0.8); EOS# 0.26 X1000 (0.0-0.7); EOS% 2.7 % (0.0-10.0); HEMATOCRIT 23.5 % (37.0-47.0); HEMOGLOBIN 7.2 g/dL (12.0-16.0); IMM GRAN# 0.02 X1000 (0.0-0.04); IMM GRAN% 0.2 % (0.0-0.5); LYMPH# 2.19 X1000 (1.2-3.4); MCH 30.1 PG (27-31); MCHC 30.6 g/dL (33-37); MCV 98.3 FL (81-99); MONO# 0.85 X1000 (0.11-0.59); MONO% 8.9 % (1.7-9.3); MPV 9.9 FL (7.4-10.4); NEUT# 6.17 X1000 (1.4-6.5); NEUT% 64.7 % (42.2-75.2); PLT 330 X1000 (130-400); RBC 2.39 XMIL (4.2-5.4); RDW 13.3 % (11.5-14.5); WBC 9.54 X1000 (4.8-10.8)
--- NOTE | 2018-04-18 07:04 | PROGRESS NOTE ---
DATE: 04/18/2018 SUBJECTIVE: Ms. Wallace is doing well. The patient denied any chest pain or palpitations. Pain in the leg is fairly stable. No nausea or vomiting. Oral intake is fair. Denied any diarrhea. His hemoglobin and hematocrit were low yesterday. I am going to recheck it. The patient may need blood transfusion. Potassium and magnesium were low, we will supplement. Mild cough. No expectoration. The patient is status post surgery for right femur shaft fracture. OBJECTIVE: Vital signs noted.Neck: Supple. No JVD. Lungs: Bilateral good air entry present. CVS: S1 and S2 heard. Abdomen: Soft and nontender. Bowel sounds present. SLEEVE IRONER: Alert, awake and able to move all 4 limbs. CONSIDERATION: Right femur fracture. Blood-loss anemia. Hypomagnesemia. Hypertension. Gastritis and reflux disease. I am going to stop IV Protonix. We will try p.o. Protonix. Supplement magnesium and potassium. Check morning blood work. If needed, we will give her blood transfusion. Continue physical therapy. The patient declined to go to rehab. Once okay with surgeon and clinically stable, I will discharge the patient home. cc: Brad Lloyd MD
[2018-04-18 07:32] LABS: AGAP 11; ALB/GLOB RATIO 1.6; ALKALINE PHOSPHATASE 81 U/L (32-104); BUN 10 mg/dL (8-22); CALCIUM 8.2 mg/dL (8.8-10.2); CHLORIDE 102 mmol/L (98-107); COSMO 278; CREATININE 0.8 mg/dL (0.5-0.9); ESTIMATED GFR > 60; GLUCOSE 119 mg/dL (70-104); GOT 19 U/L (10-30); GPT 6 U/L (10-36); MAGNESIUM 1.5 mg/dL (1.5-2.7); POTASSIUM 4.2 mmol/L (3.5-5.1); SODIUM 139 mmol/L (136-145); TCO2 26 mmol/L (25-35); TOTAL BILIRUBIN 0.18 mg/dL (0.20-1.00); TOTAL PROTEIN 4.9 g/dL (6.3-8.3)
--- NOTE | 2018-04-18 07:53 | PROGRESS NOTE ---
DATE: 04/18/2018 SUBJECTIVE: Ms. Wallace is lying in bed this morning. Overall, she is getting better. She worked with therapy yesterday, and actually stood at her bedside yesterday and took a few steps. OBJECTIVE: The right lower extremity exam, dressing is clean, dry, and intact. Leg lengths look good and rotation looked good. She remains neurovascularly intact right lower extremity. ASSESSMENT: Status post right intramedullary nailing femur. PLAN: Ms. Wallace can be discharged home today. We will write her script for Percocet and aspirin 325 mg b.i.d. for DVT prophylaxis. She is to weight bear as tolerated bilateral lower extremities, and I will see her in 2 weeks in clinic. cc: MD Brad Rudd MD
[2018-04-18] MEDS: CYMBALTA PO SCH (09:00)
[2018-04-18] MEDS: SYMBICORT 160/4.5 MICROGM INHALER INH SCH ×3 (09:28→19:49)
[2018-04-18] MEDS: OXY IR PO PRN ×3 (09:44→21:15)
[2018-04-18] MEDS: TOPROL XL PO SCH (09:46)
[2018-04-18] MEDS: BUSPAR PO SCH ×2 (09:46→21:12)
[2018-04-18] MEDS: PRINIVIL PO SCH ×2 (09:46→21:12)
[2018-04-18] MEDS: FERROUS SULFATE PO SCH (09:47)
[2018-04-18] MEDS: NORVASC PO SCH (09:49)
[2018-04-18] MEDS: PERIDEX MT SCH ×2 (09:50→21:12)
[2018-04-18] MEDS: SINGULAIR PO SCH (09:51)
[2018-04-18] MEDS: PROTONIX PO SCH (11:08)
[2018-04-18] MEDS ORDERED: NS 500 ML ONE (13:22)
[2018-04-18 17:45] LABS: HEMATOCRIT 30.2 % (37.0-47.0); HEMOGLOBIN 9.7 g/dL (12.0-16.0); MCHC 32.1 g/dL (33-37); MCV 93.5 FL (81-99); MPV 9.9 FL (7.4-10.4); RBC 3.23 XMIL (4.2-5.4); RDW 14.6 % (11.5-14.5); WBC 10.24 X1000 (4.8-10.8)
[2018-04-18] MEDS: COLACE PO SCH (21:12)
[2018-04-19] MEDS: PROTONIX PO SCH (06:31)
[2018-04-19 06:50] LABS: HEMOGLOBIN 9.1 g/dL (12.0-16.0)
[2018-04-19] MEDS: SYMBICORT 160/4.5 MICROGM INHALER INH SCH (08:50)
[2018-04-19] MEDS: SINGULAIR PO SCH (08:56)
[2018-04-19] MEDS: TOPROL XL PO SCH (08:56)
[2018-04-19] MEDS: FERROUS SULFATE PO SCH (08:57)
[2018-04-19] MEDS: BUSPAR PO SCH (08:58)
[2018-04-19] MEDS: CYMBALTA PO SCH (08:58)
[2018-04-19] MEDS: PERIDEX MT SCH (09:01)
[2018-04-19] MEDS: OXY IR PO PRN (09:01)
[2018-04-19] MEDS: NORVASC PO SCH (09:02)
[2018-04-19] MEDS: PRINIVIL PO SCH (09:02)
[2018-04-19 11:28] VITALS: BP 111/62
--- NOTE | 2018-04-19 14:57 | DISCHARGE SUMMARY ---
ADMISSION DATE: 04/16/2018 DISCHARGE DATE: 04/19/2018 FINAL DISCHARGE DIAGNOSIS: 1. Right femur shaft fracture. 2. Osteoporosis. 3. Hypertension. 4. Tobacco abuse. 5. Hyperlipidemia. 6. Gastritis. 7. Blood-loss anemia. 8. Constipation. 9. Situational depression. 10. Rhinitis. Ms. Wallace 67-year-old white female patient with multiple medical problems, patient had fall at home and had a fracture of the right femur shaft. Patient came to emergency room. We did orthopedic consult. Dr. Ray evaluated patient, patient underwent surgery. Patient had intramedullary miguelito and nailing of the right femur done. Patient tolerated procedure well. Postoperatively I gave her 1 unit of packed RBC yesterday. Her hemoglobin was around 7.2. Overall patient is doing better. She is able to get up by herself walk few steps. I offered her to go to rehab, patient declined which she did in the past. The patient had a fall and fracture of her left femur. Offered her inpatient rehab. Patient declined. patient wants to go home. I am planning to discharge patient today with home health. Vital signs: Noted. Neck: Supple. No JVD. Lungs: Bilateral good air entry present. CVS: S1 and S2 heard. Abdomen: Soft, nontender. Bowel sounds present. Extremities: No cyanosis, clubbing, no acute DVT. BUSINESS ANALYSIS ANALYST: Alert, awake, able to move all 4 limbs. LAB DATA: Done today, hemoglobin 9.1, hematocrit 28. Electrolytes checked yesterday, sodium 139, potassium 4.2, chloride 102, carbon dioxide was 26, BUN 10, creatinine 0.8. Urinalysis was benign. Overall patient is doing better. I offered patient today and even in the past to get hematology consult to consider treatment for osteoporosis in the form of Forteo or Reclast. Patient declined. Patient is not candidate for bisphosphonate. She is noncompliant to her vitamin D supplement and unfortunately she is still smoking. I had lengthy discussion with the patient about smoking cessation. Follow up with me 1 week. Follow up with orthopedic surgeon as scheduled. She will continue her home medicine. For DVT prophylaxis advised her to take enteric- coated aspirin. In case of more distress, call us back or go to emergency room. cc: Brad Lloyd MD
--- NOTE | 2018-04-25 20:33 | DISCHARGE SUMMARY ---
ADMISSION DATE: 04/16/2018 DISCHARGE DATE: 04/19/2018 DISCHARGE SUMMARY ADDENDUM: Ms. Wallace' anemia was due to acute blood loss anemia. cc: Brad Lloyd MD
== END 2018-04-19 11:30 | disposition home health service (06) | DRG 481 ==
LOC: SUPCPDRO → ED 11:07 → EDIPHOLD 15:05 → 4N 22:07
PROVIDERS: ADMIT Internal Medicine; ATTEND Internal Medicine
CPT/HCPCS: 36430; 51702; 71010; 71045; 72170; 73552; 76000; 80053; 81001; 83735; 84484; 85014; 85018; 85025; 85027; 85610; 85730; 86850; 86900; 86901; 86920; 93005; 94640; 94761; 94799; 96361; 96374; 96375; 96376; 97110; 97116; 97162; 97530; 99285; A9270; C9113; J0131; J0690; J1170; J2270; J2405; J3010; J3475; J7030; J7040; P9016; S0164